=== PATIENT | female | born 1970 | race Caucasian/White ===

== ENCOUNTER 2019-04-10 17:16 | Emergency (ER) | payer SELFPAY ==
[~2019-04-10] VITALS: Ht 160 cm; Wt 79.4 kg
[2019-04-10 17:39] VITALS: Ht 160 cm; Wt 79.4 kg
[2019-04-10 20:24] VITALS: BP 128/79
== END 2019-04-10 20:24 | disposition home or self-care (01) ==
LOC: ED 17:16
DX: S01.81XA Laceration without foreign body of other part of head, initial encounter (principal); W01.0XXA Fall on same level from slipping, tripping and stumbling without subsequent striking against object, initial encounter; Y93.89 Activity, other specified; Y92.89 Other specified places as the place of occurrence of the external cause; Y99.8 Other external cause status

== ENCOUNTER 2019-08-07 13:44 | Emergency (ER) | payer MEDICAID ==
[~2019-08-07] VITALS: Ht 160 cm; Wt 79.8 kg
[2019-08-07 13:51] VITALS: BP 147/99; Ht 160 cm; Wt 79.8 kg
== END 2019-08-07 16:45 | disposition left against medical advice (07) ==
LOC: ED 13:44
DX: Z53.21 Procedure and treatment not carried out due to patient leaving prior to being seen by health care provider (principal)